=== PATIENT | female | born 2000 | race Hispanic/Latino ===

== ENCOUNTER 2020-08-19 10:28 | Emergency (ER) | payer OTHER ==
[2020-08-19 12:08] LABS: SARS-COV-2 RT PCR NEGATIVE (NEGATIVE)
[2020-08-19 13:05] LABS: Basophils % 1.2 % (0-1.3); Hematocrit 41.2 % (36.0-45.0); Lymphocytes % 39.8 % (15.3-44.8); MPV 7.9 fL (7.6-11.3); RBC Red Blood Cell Count 4.68 M/uL (3.86-4.86)
[2020-08-19 13:23] LABS: BUN Blood Urea Nitrogen 8 mg/dL (7-18); Bicarbonate 30 mmol/L (21-32); Glucose Level 85 mg/dL (74-106); Potassium 4.1 mmol/L (3.5-5.1); Sodium Level 140 mmol/L (136-145)
--- NOTE | 2020-08-19 13:29 | EDPHYS ---
Physician Documentation [facility] Name: Elizabeth Ocampo Age: 20 yrs Sex: Female : 2000 Arrival Date: 08/19/2020 Time: 10:30 Bed 17 Private MD: ED Physician Negro Zee HPI: 08/19 11:55 This 20 yrs old Female presents to ER via Ambulatory with complaints of Runny kb Nose, Body Aches, Rectal Bleeding. 11:55 The patient or guardian reports flu symptoms, myalgias. Severity of symptoms: At their kb worst the symptoms were mild, in the emergency department the symptoms are unchanged. Associated signs and symptoms: Pertinent positives: rhinorrhea, Pertinent negatives: chest pain, diarrhea, ear ache, fever, nausea, sore throat, vomiting. The patient has not experienced similar symptoms in the past. The patient has not recently seen a physician. 11:56 Onset: The symptoms/episode began/occurred yesterday. Modifying factors: The symptoms kb are alleviated by nothing, the symptoms are aggravated by nothing. Pt reports bodyaches, malaise, runny nose, lack of smell. States today she wiped and there was some blood on the toilet paper from rectum. Historical: - Allergies: 10:43 No Known Allergies; ll1 - PMHx: 10:43 None; ll1 - PSHx: 10:43 None; ll1 - Immunization history:: Adult Immunizations up to date. - Social history:: Smoking status: Patient denies any tobacco usage or history of. ROS: 11:52 Cardiovascular: Negative for chest pain, palpitations, and edema, Respiratory: Negative kb for shortness of breath, cough, wheezing, and pleuritic chest pain, MS/Extremity: Negative for injury and deformity, Skin: Negative for injury, rash, and discoloration, Neuro: Negative for headache, weakness, numbness, tingling, and seizure. 11:52 Constitutional: Positive for body aches, fatigue, malaise. 11:52 ENT: Positive for rhinorrhea. 11:52 Abdomen/GI: Positive for rectal bleeding. Exam: 11:52 Constitutional: This is a well developed, well nourished patient who is awake, alert, kb and in no acute distress. Head/Face: Normocephalic, atraumatic. Chest/axilla: Normal chest wall appearance and motion. Nontender with no deformity. No lesions are appreciated. Cardiovascular: Regular rate and rhythm with a normal S1 and S2. No gallops, murmurs, or rubs. Normal PMI, no JVD. No pulse deficits. Respiratory: Lungs have equal breath sounds bilaterally, clear to auscultation and percussion. No rales, rhonchi or wheezes noted. No increased work of breathing, no retractions or nasal flaring. Abdomen/GI: Soft, non-tender, with normal bowel sounds. No distension or tympany. No guarding or rebound. No evidence of tenderness throughout. Skin: Warm, dry with normal turgor. Normal color with no rashes, no lesions, and no evidence of cellulitis. MS/ Extremity: Pulses equal, no cyanosis. Neurovascular intact. Full, normal range of motion. Neuro: Awake and alert, GCS 15, oriented to person, place, time, and situation. Cranial nerves II-XII grossly intact. Motor strength 5/5 in all extremities. Sensory grossly intact. Cerebellar exam normal. Normal gait. 13:28 Abdomen/GI: Rectal exam: rectal tone normal, Stool: guaiac positive, hemorrhoid(s), are kb not appreciated. Vital Signs: 10:43 BP 125 / 61; Pulse 73; Resp 18; Temp 97.3; Pulse Ox 98% ; ll1 10:45 BP 109 / 83; Pulse 68; Resp 16; Pulse Ox 100% on R/A; vg1 12:00 BP 108 / 80; Pulse 63; Resp 14; Pulse Ox 98% on R/A; vg1 13:00 BP 103 / 72; Pulse 65; Resp 14; Pulse Ox 98% on R/A; vg1 MDM: 10:38 Patient medically screened. kb 11:55 Data reviewed: vital signs, nurses notes. Data interpreted: Pulse oximetry: on room air kb is 98 %. Interpretation: normal. Counseling: I had a detailed discussion with the patient and/or guardian regarding: the historical points, exam findings, and any diagnostic results supporting the discharge/admit diagnosis, lab results, the need for outpatient follow up, a family practitioner, to return to the emergency department if symptoms worsen or persist or if there are any questions or concerns that arise at home. 08/19 12:09 Order name: COVID-19/FLU A+B; Complete Time: 12:13 [facility] 08/19 12:35 Order name: IV Start; Complete Time: 12:50 kb 08/19 12:35 Order name: CBC with Diff; Complete Time: 13:24 kb 08/19 12:35 Order name: Basic Metabolic Panel; Complete Time: 13:24 kb Administered Medications: No medications were administered Disposition: 08/20 08:38 Co-signature as Attending Physician, Negro Zee MD I agree with the assessment and devin plan of care. Disposition: 08/19/20 13:28 Discharged to Home. Impression: Gastrointestinal hemorrhage, unspecified, Acute upper respiratory infection, unspecified. - Condition is Stable. - Discharge Instructions: Rectal Bleeding, Upper Respiratory Infection, Adult, [id number]. - Medication Reconciliation Form, Thank You Letter, Antibiotic Education, Prescription Opioid Use form. - Follow up: Emergency Department; When: As needed; Reason: Worsening of condition. Follow up: Private Physician; When: 2 - 3 days; Reason: Recheck today's complaints, Continuance of care, Re-evaluation by your physician. Signatures: Dispatcher [employer] [facility] Dione Blevins, TREASURY ANALYST-C TREASURY ANALYST-Shadib Negro Zee MD MD cha Garcia, Victoria, RN RN vg1 Brandon Castle RN RN ll1 Corrections: (The following items were deleted from the chart) 08/19 11:15 10:44 CORONAVIRUS+MR.LAB.BRZ ordered. [facility] 11:16 10:44 Influenza Screen (A \T\ B)+BA.LAB.BRZ ordered. [facility] 13:54 13:28 08/19/2020 13:28 Discharged to Home. Impression: Gastrointestinal hemorrhage, vg1 unspecified; Acute upper respiratory infection, unspecified. Condition is Stable. Forms are Medication Reconciliation Form, Thank You Letter, Antibiotic Education, Prescription Opioid Use. Follow up: Emergency Department; When: As needed; Reason: Worsening of condition. Follow up: Private Physician; When: 2 - 3 days; Reason: Recheck today's complaints, Continuance of care, Re-evaluation by your physician. kb
--- NOTE | 2020-08-19 13:29 | ER ---
Nurse's Notes [facility] Name: Elizabeth Ocampo Age: 20 yrs Sex: Female : 2000 Arrival Date: 08/19/2020 Time: 10:30 Bed 17 Private MD: Diagnosis: Gastrointestinal hemorrhage, unspecified;Acute upper respiratory infection, unspecified Presentation: 08/19 10:43 Chief complaint: Patient states: Runny nose, body aches, diarrhea with blood in it. ll1 Coronavirus screen: Client denies travel out of the [place] in the last 14 days. diarrhea, fatigue, runny nose, Client presents with at least one sign or symptom that may indicate coronavirus-19. Standard/surgical mask placed on the client. Ebola Screen: Patient denies travel to an Ebola-affected area in the 21 days before illness onset. Initial Sepsis Screen: Does the patient meet any 2 criteria? No. Patient's initial sepsis screen is negative. Does the patient have a suspected source of infection? No. Patient's initial sepsis screen is negative. Risk Assessment: Do you want to hurt yourself or someone else? Patient reports no desire to harm self or others. 10:43 Method Of Arrival: Ambulatory ll1 10:43 Acuity: BRITTANY 3 ll1 11:54 Onset of symptoms is unknown. ll1 Historical: - Allergies: 10:43 No Known Allergies; ll1 - PMHx: 10:43 None; ll1 - PSHx: 10:43 None; ll1 - Immunization history:: Adult Immunizations up to date. - Social history:: Smoking status: Patient denies any tobacco usage or history of. Screenin:53 Abuse screen: Denies threats or abuse. Nutritional screening: No deficits noted. ll1 Tuberculosis screening: No symptoms or risk factors identified. Fall Risk None identified. Total Huff Fall Scale indicates No Risk (0-24 pts). Assessment: 10:45 General: Appears in no apparent distress. Behavior is calm, cooperative, appropriate ll1 for age. Pain: Complains of pain in body Quality of pain is described as aching. Neuro: No deficits noted. Cardiovascular: No deficits noted. Respiratory: Airway is patent Trachea midline Respiratory effort is even, unlabored, Respiratory pattern is regular, symmetrical. GI: Abdomen is flat, Bowel sounds present X 4 quads. Abd is soft and non tender X 4 quads. Reports diarrhea, rectal bleeding. EENT: Nares are clear Reports runny nose. Musculoskeletal: Circulation, motion, and sensation intact. Capillary refill < 3 seconds, Range of motion: intact in all extremities, Reports pain in body aches. 12:06 General: Appears in no apparent distress. Behavior is calm, cooperative. vg1 12:06 Pain: Denies pain. Neuro: Level of Consciousness is awake, alert, obeys commands, vg1 Oriented to person, place, time. Cardiovascular: Patient's skin is warm and dry. Respiratory: Airway is patent Respiratory effort is even, unlabored, Respiratory pattern is regular, symmetrical. GI: Reports diarrhea, rectal bleeding. : No signs and/or symptoms were reported regarding the genitourinary system. EENT: Reports runny nose. . Derm: Skin is intact, is healthy with good turgor. Musculoskeletal: Circulation, motion, and sensation intact. 13:52 Reassessment: Patient appears in no apparent distress at this time. No changes from vg1 previously documented assessment. Patient denies pain at this time. Vital Signs: 10:43 BP 125 / 61; Pulse 73; Resp 18; Temp 97.3; Pulse Ox 98% ; ll1 10:45 BP 109 / 83; Pulse 68; Resp 16; Pulse Ox 100% on R/A; vg1 12:00 BP 108 / 80; Pulse 63; Resp 14; Pulse Ox 98% on R/A; vg1 13:00 BP 103 / 72; Pulse 65; Resp 14; Pulse Ox 98% on R/A; vg1 ED Course: 10:30 Patient arrived in ED. rg4 10:31 Dione Blevins FNP-C is PHCP. kb 10:31 Negro Zee MD is Attending Physician. kb 10:38 Brandon Castle, RN is Primary Nurse. ll1 10:43 Arm band placed on Patient placed in an exam room, on a stretcher. ll1 10:45 Triage completed. ll1 11:53 Patient has correct armband on for positive identification. Bed in low position. Call ll1 light in reach. Side rails up X 1. Cardiac monitoring not applicable on this patient. 12:02 Primary Nurse role handed off by Brandon Castle, RN vg1 12:02 Brunilda Ayoub, RN is Primary Nurse. vg1 12:48 Initial lab(s) drawn, by sc, sent to lab. Inserted saline lock: 20 gauge in left em antecubital area, using aseptic technique. Blood collected. 13:50 No provider procedures requiring assistance completed. IV discontinued, intact, vg1 bleeding controlled, No redness/swelling at site. Pressure dressing applied. Administered Medications: No medications were administered Outcome: 13:28 Discharge ordered by . denzel 13:50 Discharged to home ambulatory, with family. vg1 13:50 Condition: stable 13:50 Discharge instructions given to patient, family, Instructed on discharge instructions, follow up and referral plans. Demonstrated understanding of instructions, follow-up care. 13:54 Patient left the ED. vg1 Signatures: Dione Blevins, LIVESTOCK JUDGING COACH-C LIVESTOCK JUDGING COACH-Carlton Austin RN RN Jackelyn Correa4 Brunilda Ayoub RN RN vg1 Brandon Castle RN RN ll1 Corrections: (The following items were deleted from the chart) 04 01:40 0103 13:50 Discharge instructions given to patient, family, Instructed on discharge vg1 instructions, follow up and referral plans. medication usage, Demonstrated understanding of instructions, follow-up care, medications, vg1
[2020-08-19 13:58] VITALS: TEMP 97.3
[2020-08-19 14:08] VITALS: O2SAT 98
[2020-08-19 14:09] VITALS: BP 103/72
== END 2020-08-19 13:54 | disposition home or self-care (01) ==
LOC: ER 10:28
DX: J06.9 Acute upper respiratory infection, unspecified (principal); K92.2 Gastrointestinal hemorrhage, unspecified; Z20.828 Contact with and (suspected) exposure to other viral communicable diseases
CPT/HCPCS: 85025; 80048; 36415; 0240U; 99283

== ENCOUNTER 2020-11-09 11:13 | Emergency (ER) | payer OTHER, SELFPAY ==
--- OUTSIDE RECORDS SUMMARY | 2020-11-09 11:17 | XMS REPORT | Continuity of Care Document ---
:2000 Author Organization [facility] t Address [address] [place] [address] Care Team Providers Name Role Phone Ulises ACUÑA Attending Clinician Sheree Lorenzo Attending Clinician Sheree Lorenzo Admitting Clinician Problems Condition Condition Condition Status Onset Resolution Last Treating Co mments Source Name Details Category Date Date Treatment Clinician Date F/U GROWTH Diagnosis Active 2018-11-26 Memoria 08-27 12:39:00 l F/U 00:00: Rochelle GROWTH 00 Active 08/27/2018 [facility] [place] ANATOMY Diagnosis Active 2018-11-12 Me moria 1-03 15:44:00 l ANATOMY 00:00: Rochelle 00 Active 08/19/2018 [facility] NORMAL Diagnosis Active 2018-12-30 Mem oria DELIVERY 04-05 05:28:00 l NORMAL 00:00: Zackery DELIVERY 00 Active 04/05/2018 [facility] [place] CONTRACTIO Diagnosis Active 2016-082017-06-24 Memoria NS 08-23 06:23:00 l 00:00: Roc[place]le CONTRACTIO 00 NS Active 7 [facility] [place] FELL/SPOTT Diagnosis Active 2017-04-17 Memoria ING 04-17 12:20:00 l 00:00: [place]le FELL/SPOTT 00 ING Active 04/17/2017 [facility] [place] SCREEN FOR Diagnosis Active 2017-02-27 Memoria ANOMALIES 6-08 10:21:00 l SCREEN 00:00: Zackery FOR 00 ANOMALIES Active 01/22/2017 [facility] Diagnosis Active 2017-07-02 Memoria 2-17 10:25:00 l 00:00: [place]le 00 [facility]03[facility] En[facility] Problem 2019-01-03 Me moria for 21:16:15 l full-term Zackery uncomplica Encounter nicolasa for delivery full-term uncomplica nicolasa delivery 01/03/2019 [facility] ENCOUNTER Diagnosis Active 2018-12-30 Memoria FOR 05:28:00 l FULL-TERM [place]helle UNCOMPLICA ENCOUNTER NICOLASA DE FOR FULL-TERM UNCOMPLICA NICOLASA DE Active [facility] Patient Problem Resolve 2019-01-03 2019-01-03 Memoria currently d 8-16 21:16:15 21:16:15 l Patient 00:00: Amarilis nn (finding) currently 00 (finding) Resolved 04/01/2018 Problem 01/03/2019 [facility] Allergies, Adverse Reactions, Alerts Allergy Allergy Status Severity Reaction(s) Onset Inactive Treating Comm ents Source Name Type Date Date Clinician No Known No Known Active Memori a Medicati Medicati l on on Zackery Allergie Allergie s s Social History Social Habit Start Date Stop Date Quantity Comments Source Social History 2017-06-29 2017-06-29 Truman Rafaela emil 15:10:19 15:10:19 Medications Ordered Filled Start Stop Current Ordering Indication Dosage Frequency Signature Comments Components Source Medication Medication Date Date Medication? Clinician (SIG) Name Name Ketorolac Yes 4 days Memor ia 5-16 l 17:00: MEDICATION Rochelle WASTE Product Size: 30 mg Product Wasted: ___ mg Naloxone No Notes: Memoria 5-16 Same as l 15:00: Narcan Zackery Ketorolac No 4 days Memor ia 5-16 l 14:47: MEDICATION Zackery 00 WASTE Product Size: 30 mg Product Wasted: ___ mg Ondansetron No Notes: Eric eyad -16 (Same as: l 14:47: Zofran) Rochelle 00 MEDICATION WASTE Product Size: 4 mg Product Wasted: ___ mg Hydromorpho No Notes: Eric eyad ne 5-16 Same as: l 14:47: Dilaudid Rochelle 00 Diphenhydra No 12.5 mg, Me moria mine 5-16 0.5 tab, l 14:47: Route: PO, Zackery 00 Drug form: TAB, Q6H, Dosing Weight 96.364, kg, PRN Itching, Start date: 12/30/18 9:47:00 CDT, Duration: 30 day, Stop date: 01/29/19 9:46:00 CDT Ibuprofen No Notes: Memori a 5-16 (Same as: l 14:47: Motrin) Zackery 00 "Do Not Crush" Take with food. Acetaminoph Yes Notes: Max Memoria en 5-16 acetaminop l 14:46: hen 4000 Rochelle 00 mg/day (4 gm/day). (Same as: Tylenol Extra Strength) morphine No Route: IV, Mem oria Sulfate 5-16 Drug form: l (ANES) 14:00: INJ, ONCE, Amarilis nn Stop date: 12/30/18 9:00:00 CDT Ibuprofen No Notes: Memori a 5-16 (Same as: l 14:00: Motrin) Zackery "Do Not Crush" Take with food. Saline No Notes: Memoria Flush 0.9% 5-16 Same as: l 14:00: BD Zackery Posiflush Sterile No 1 tab, Memoria Multivitami 5-16 Route: PO, l ns oral 14:00: Drug Form: Herm lupe tablet 00 TAB, Dosing Weight 96.364, kg, Daily, Start date: 12/30/18 9:00:00 CDT, Duration: 30 day, Stop date: 01/28/19 9:00:00 CDT ferrous No Notes: Memoria sulfate 5-16 Give with l 14:00: food. iron Rochelle 00 elemental [id number] as ferrous sulfate Dose=___mg elemental iron M-M-R II No Notes: Memoria 5-16 (Same as: l 14:00: M-M-R II) Rochelle 00 (measles-m umps-rub la virus vaccine 0.5 ml INJ VL) WASTE: F/P - Red; E -Red GIVE PRIOR TO DISCHARGE phenylephri No Route: IV, Memoria ne (ANES) 5-16 Drug form: l 13:57: INJ, ONCE, Zackery Stop date: 12/30/18 8:57:00 CDT Acetaminoph No Notes: Eric eyad en 325 MG / 5-16 (Same as: l Hydrocodone 13:50: Acton Amarilis nn Bitartrate 00 325/5) Do 5 MG Oral not exceed Tablet 4gm/day of acetaminop hen. Saline No Notes: Memoria Flush 0.9% 5-16 Same as: l 13:50: BD Rochelle 00 Posiflush Sterile Acetaminoph No Notes: Do M emoria en 325 MG / 5-16 not exceed l Hydrocodone 13:50: 4gm/day of Rochelle Bitartrate 00 acetaminop 10 MG Oral hen. Tablet (Same as: Acton 325/10) lanolin No 1 appl, Memoria topical 5-16 Route: l cream 13:50: TOP, PRN, Drug form: CRM, PRN Other -See Comment, Start date: 12/30/18 8:50:00 CDT, Duration: 30 day, Stop date: 01/29/19 8:49:00 CDT Bisacodyl No Notes: Memori a 5-16 (Same As: l 13:50: Dulcolax, Rochelle 00 Correctol) (Do Not Crush) "Do Not Crush" Oxytocin No 30 unit, Memor ia 5-16 500 mL, l 13:50: Rate: 42 Rochelle 00 ml/hr, Infuse over: 11.9 hr, Dosing Weight 96.364, kg, Route: IV, Total Volume: 500 mL, Start date: 12/30/18 8:50:00 CDT, Duration: 2 day, Stop date: 01/01/19 8:49:00 CDT, Replace Every: 11.9 hr Lactated No 1,000 mL, Eric eyad Ringers IV 5-16 Rate: 100 l 1,000 mL 13:50: ml/hr, Infuse over: 10 hr, Route: IV, Dosing Weight 96.364 kg, Total Volume: 1,000, Start date: 12/30/18 8:50:00 CDT, Duration: 30 day, Stop date: 01/29/19 8:49:00 CDT, 2.05, m2 zolpidem No Notes: Memoria 5-16 (Same As: l 13:50: Ambien) Simethicone No Notes: Eric eyad 5-16 (Same as: l 13:50: Mylicon) Acetaminoph No Notes: Do M emoria en 5-16 not exceed l 13:50: 4 gm/day. (Same as: Tylenol) Ondansetron No Notes: Eric eyad 5-16 (Same as: l 13:50: Zofran) MEDICATION WASTE Product Size: 4 mg Product Wasted: ___ mg Docusate No Notes: Memoria 5-16 (Same as: l 13:50: Colace) (Do Not Crush) ondansetron No Route: IV, Memoria (ANES) 5-16 Drug form: l 13:48: INJ, ONCE, Stop date: 12/30/18 8:48:00 CDT oxytocin No Route: IV, Mem oria (ANES) 5-16 Drug form: l 13:48: CARLOSNSamanthaRochelle 00 ONCE, Stop date: 12/30/18 8:48:00 CDT ceFAZolin No Route: IV, Me moria (ANES) 5-16 Drug form: l 13:32: INJ, ONCE, Stop date: 12/30/18 8:32:00 CDT oxytocin No Route: IV, Mem oria (ANES) 30 5-16 Drug form: l unit 13:17: Samantha ELLIOTT Start date: 12/30/18 8:17:00 CDT, Stop date: 12/30/18 9:17:00 CDT bupivacaine No Route: Eric eyad (ANES) 5-16 INTRATHECA l 13:17: L, Drug Form: INJ, ONCE, Stop date: 12/30/18 8:17:00 CDT Lactated No Route: IV, Mem oria Ringers 5-16 Total l Injection 12:37: Volume: Amarilis nn IV (ANES) 00 1,000, 1000 mL Start date: 12/30/18 7:37:00 CDT, Stop date: 12/30/18 8:37:00 CDT Misoprostol No Notes: Eric eyad 5-16 (Same l 12:00: as:Cytotec Rochelle 00 ) Take with food Carboprost No Notes: Memor ia 5-16 (Same As: l 12:00: Hemabate) Zackery 00 Methylergon No Notes: Eric eyad ovine 5-16 (Same l 12:00: as:Metherg Zackery 00 ine) ceFAZolin + Yes Notes: Eric eyad Sodium 5-16 (Same As: l Chloride 11:23: Ancef, Rochelle 0.9% IV 100 00 Kefzol) mL MEDICATION WASTE Product Size: 1000 mg Product Wasted: ___ mg Cefazolin No /= 100 Memor ia 5-16 kg), Start l 11:08: date: Zackery 00 12/30/18 6:08:00 CDT, Stop date: 12/30/18 6:08:00 CDT, ABX Indication : Surgical Prophylaxi s Morphine No 2 mg, 1 Memori a 5-16 mL, Route: l 11:08: IVP, Drug form: SOLN, Q2H, Dosing Weight 96.364, kg, PRN Pain Score 7-10, Start date: 12/30/18 6:08:00 CDT, Duration: 30 day, Stop date: 01/29/19 6:07:00 CDT Famotidine No Notes: Memor ia 5-16 (Same as: l 11:08: Pepcid) Can be dilute in 5-10cc NS IVP: Slow IV push over at least 2 minutes. Tranexamic No Notes: Memor ia Acid 5-16 (Same As: l 11:08: Cyklokapro Rochelle 00 n) Metoclopram No Notes: Eric eyad cassius 5-16 (Same as: l 11:08: Reglan) Ondansetron No Notes: Eric eyad 5-16 (Same as: l 11:08: Zofran) MEDICATION WASTE Product Size: 4 mg Product Wasted: ___ mg Oxytocin No 30 unit, Memor ia 5-16 500 mL, l 11:08: Rate: 42 Rochelle 00 ml/hr, Infuse over: 11.9 hr, Dosing Weight 96.364, kg, Route: IV, Total Volume: 500 mL, Start date: 12/30/18 6:08:00 CDT, Duration: 1 doses or times, Stop date: 12/30/18 18:01:00 CDT, Replace Every: 11.9 hr Terbutaline No Notes: Eric eyad 5-16 DO NOT l 11:08: USE IN FLAKE OR SHRED ROLL OPERATOR AREA (Same As: Brethine) Citric Acid No Notes: Eric eyad / sodium 5-16 (Same As: l citrate 11:08: Bicitra) Danyel n 00 Calcium No 1,000 mL, Memor ia Chloride 5-16 Rate: 125 l 0.0014 11:08: ml/hr, Zackery MEQ/ML / 00 Infuse Potassium over: 8 Chloride hr, Route: 0.004 IV, Dosing MEQ/ML / Weight Sodium 96.364 kg, Chloride Total 0.103 Volume: MEQ/ML / 1,000, Sodium Start Lactate date: 0.028 12/30/18 MEQ/ML 6:08:00 Injectable CDT, Solution Duration: 30 day, Stop date: 01/29/19 6:07:00 CDT, 2.05, m2 Docusate 2016-08 Yes 100 mg = 1 Mem oria Sodium 100 1-17 cap, PO, l MG Oral 15:58: BID, PRN Danyel n Capsule 00 Constipati on, # 60 cap, 0 Refill(s) ferrous 2016-08 Yes 325 mg = 1 Eric eyad sulfate 325 1-17 tab, PO, l MG Oral 15:58: TID, # 90 Amarilis nn Tablet 00 tab, 0 Refill(s) Acetaminoph 2016-08 Yes 1 - 2 tab, Memoria en 300 MG / -17 PO, Q4H, l Codeine 15:58: PRN Pain, Amarilis nn Phosphate 00 X 4 day, # 30 MG Oral 36 tab, 0 Tablet Refill(s) [Tylenol with Codeine #3] ibuprofen 2016-08 Yes 800 mg = 1 Me moria 800 mg oral 1-17 tab, PO, l tablet 15:58: Q8H, PRN Rochelle 00 Pain, Take with food, # 30 tab, 0 Refill(s) K-Dur 20 2016-08 No Notes: Memoria -17 (Same as: l 15:32: K-Dur 20) Zackery 00 "Do Not Crush" With food and full glass of water influenza 2016-08 No Notes: Memori a virus 09-02 (Same as: l vaccine, 15:00: Fluzone Danyel n inactivated 00 Quadrivale nt, Fluarix Quadrivale nt) For 3 years of age and older (0.5 mL IM) Shake well before use Ketorolac 2016-08 No 4 days Memor ia 17 l 00:50: MEDICATION Rochelle 00 WASTE Product Size: 30 mg Product Wasted: ___ mg ferrous 2016-08 No Notes: Memoria sulfate 09-01 Give with l 15:00: food. iron Zackery 00 elemental 38ui=617nm as ferrous sulfate Dose=___mg elemental iron 2016-08 No 1 tab, Memoria Multivitami 16 Route: PO, l ns oral 15:00: Drug Form: Herm lupe tablet 00 TAB, Dosing Weight 101.818, kg, Daily, Start date: 07/02/17 9:00:00 DIRT CONTRACTOR, Duration: 30 day, Stop date: 08/01/17 8:59:00 DIRT CONTRACTOR Lasix 2016-08 No Notes: Memoria -16 (Same as: l 14:16: Lasix) Zackery 00 MEDICATION WASTE Product Size: 40 mg Product Wasted: ___ mg Lasix 2016-08 No Notes: Memoria -16 (Same as: l 08:28: Lasix) Rochelle 00 MEDICATION WASTE Product Size: 40 mg Product Wasted: ___ mg Ibuprofen 2016-08 No Notes: Memori a 1-16 (Same as: l 00:00: Motrin) Rochelle 00 "Do Not Crush" Take with food. M-M-R II 2016-08 No Notes: Memoria 1-15 (Same as: l 22:00: M-M-R II) Zackery 00 (measles-m umps-rubel la virus vaccine 0.5 ml INJ VL) WASTE: F/P - Red; E -Red GIVE PRIOR TO DISCHARGE Acetaminoph 2016-08 No Notes: Eric eyad en 325 MG / 15 (Same as: l Hydrocodone 21:04: Acton Amarilis nn Bitartrate 00 325/5) Do 5 MG Oral not exceed Tablet 4gm/day of acetaminop hen. Methylergon 2016-08 No Notes: Eric eyad ovine -15 (Same l 21:04: as:Metherg Zackery ine) Benzocaine 2016-08 No Notes: Memor ia 200 MG/ML 15 (Same As: l Topical 21:04: Dermoplast Herm lupe Cullen ) WASTE: [Dermoplast Aerosol - ] Return to Pharmacy FOR EXTERNAL USE ONLY zolpidem 2016-08 No Notes: Memoria 1-15 (Same As: l 21:04: Ambien) Zackery 00 Bisacodyl 2016-08 No Notes: Memori a -15 (Same As: l 21:04: Dulcolax, Rochelle Correctol) (Do Not Crush) "Do Not Crush" lanolin 2016-08 No 1 appl, Memoria topical -15 Route: l 21:04: TOP, PRN, Rochelle Drug form: CRM, PRN Other -See Comment, Start date: 07/01/17 15:04:00 DIRT CONTRACTOR, Duration: 30 day, Stop date: 07/31/17 15:03:00 DIRT CONTRACTOR Ondansetron 2016-08 No Notes: Eric eyad -15 (Same as: l 21:04: Zofran) Rochelle 00 MEDICATION WASTE Product Size: 4 mg Product Wasted: ___ mg Docusate 2016-08 No Notes: Memoria 1-15 (Same as: l 21:04: Colace) Zackery (Do Not Crush) Lactated 2016-08 No 1,000 mL, Eric eyad Ringers IV -15 Rate: 100 l 1,000 mL 21:04: ml/hr, Zackery 00 Infuse over: 10 hr, Route: IV, Dosing Weight 101.818 kg, Total Volume: 1,000, Start date: 07/01/17 15:04:00 DIRT CONTRACTOR, Duration: 30 day, Stop date: 07/31/17 15:03:00 DIRT CONTRACTOR, 2.09, m2 Oxytocin 2016-08 No 30 unit, Memor ia 1-15 500 mL, l 21:04: Rate: 42 Rochelle 00 ml/hr, Infuse over: 11.9 hr, Dosing Weight 101.818, kg, Route: IV, Total Volume: 500 mL, Start date: 07/01/17 15:04:00 DIRT CONTRACTOR, Duration: 2 day, Stop date: 07/03/17 15:03:00 DIRT CONTRACTOR, Replace Every: 11.9 hr Ondansetron 2016-08 No Notes: Eric eyad -15 (Same as: l 00:05: Zofran) Zackery 00 MEDICATION WASTE Product Size: 4 mg Product Wasted: ___ mg Naloxone 2016-08 No Notes: Memoria -15 Same as l 00:05: Narcan Diphenhydra 2016-08 No Notes: Eric eyad mine -15 (Same as: l 00:05: Benadryl) Benadryl 2016-08 No Notes: Memoria -15 (Same as: l 00:05: Benadryl) Rochelle ketOROLAC 2016-08 No 4 days Memor ia 30 mg/mL 08-31 l injectable 00:05: MEDICATION H ermann solution 00 WASTE Product Size: 30 mg Product Wasted: ___ mg Zofran 2016-08 No Notes: Memoria 1-15 (Same as: l 00:05: Zofran) Rochelle 00 MEDICATION WASTE Product Size: 4 mg Product Wasted: ___ mg Ofirmev 2016-08 No Notes: Memoria 1-15 Infuse l 00:05: over 15 Zackery 00 minutes Do not exceed 4gm/day of acetaminop hen MEDICATION WASTE Product Size: 1000 mg Product Wasted: ___ mg Acetaminoph 2016-08 No Notes: Max Memoria en 1-15 acetaminop l 00:05: hen 4000 Zackery 00 mg/day (4 gm/day). (Same as: Tylenol Extra Strength) Morphine 2016-08 No Notes: Memoria 1-15 Preservati l 00:05: ve free. Zackery 00 (Same as: Morphine Sulfate-PF ) Hydromorpho 2016-08 No Notes: Eric eyad ne 1-15 Same as: l 00:05: Dilaudid Rochelle 00 Promethazin 2016-08 No Notes: Eric eyad e 1-15 (Same as: l 00:05: Phenergan) Rochelle 00 influenza 2016-08 Yes Notes: Memori a virus 1-14 (Same as: l vaccine, 15:00: Fluzone Danyel n inactivated 00 Quadrivale nt, Fluarix Quadrivale nt) For 3 years of age and older (0.5 mL IM) Shake well before use Oxytocin 2016-08 No 30 unit, Memor ia 1-14 500 mL, l 14:50: Rate: Rochelle 00 Titrate, Dosing Weight 101.818, kg, Route: IV, Total Volume: 500 mL, Start date: 06/30/17 8:50:00 DIRT CONTRACTOR, Duration: 2 day, Stop date: 07/02/17 8:49:00 DIRT CONTRACTOR, Replace Every: 24 hr Remove - 2016-08 No Notes: Memoria dinoproston 1-14 Vaginal l e 04:00: insert: to Zackery (Cervidil) 00 be removed insert 1 hour prior to oxytocin administra tion or 12 hours after insertion. Carboprost 2016-08 No Notes: Memor ia 1-13 (Same As: l 16:00: Hemabate) Zackery 00 Methylergon 2016-08 No Notes: Eric eyad ovine 1-13 (Same l 16:00: as:Metherg Zackery 00 ine) Citric Acid 2016-08 No Notes: Eric eyad / sodium 1-13 (Same As: l citrate 16:00: Bicitra) Danyel n 00 Famotidine 2016-08 No Notes: Memor ia 1-13 (Same as: l 16:00: Pepcid) Rochelle 00 Can be dilute in 5-10cc NS IVP: Slow IV push over at least 2 minutes. Misoprostol 2016-08 No Notes: Eric eyad -13 (Same l 16:00: as:Cytotec Rochelle ) Take with food Cervidil 2016-08 No Notes: Memoria - (Same as: l 15:38: Cervidil) Rochelle Terbutaline 2016-08 No Notes: Eric eyad 08-29 DO NOT l 15:33: USE IN Zackery 00 FLAKE OR SHRED ROLL OPERATOR AREA (Same As: Brethine) Lidocaine 2016-08 No Notes: Memori a Hydrochlori 08-29 Preservati l de 10 MG/ML 15:33: ve free. He rmann Injectable (Same as: Solution Xylocaine MPF) Ondansetron 2016-08 No Notes: Eric eyad 08-29 (Same as: l 15:33: Zofran) Zackery MEDICATION WASTE Product Size: 4 mg Product Wasted: ___ mg Ibuprofen 2016-08 No Notes: Memori a - (Same as: l 15:33: Motrin) Zackery "Do Not Crush" Take with food. Acetaminoph 2016-08 No Notes: Eric eyad en 325 MG / 08-29 (Same as: l Hydrocodone 15:33: Acton Amarilis nn Bitartrate 00 325/5) Do 5 MG Oral not exceed Tablet 4gm/day of acetaminop hen. Butorphanol 2016-08 No Notes: Eric eyad -13 (Same As: l 15:33: Stadol) Zackery 00 Oxytocin 2016-08 No 30 unit, Memor ia -13 500 mL, l 15:33: Rate: 42 Rochelle 00 ml/hr, Infuse over: 11.9 hr, Dosing Weight 101.818, kg, Route: IV, Total Volume: 500 mL, Start date: 06/29/17 9:33:00 DIRT CONTRACTOR, Duration: 2 day, Stop date: 07/01/17 9:32:00 DIRT CONTRACTOR, Replace Every: 11.9 hr Lactated 2016-08 No 1,000 mL, Eric eyad Ringers IV 08-29 Rate: 125 l 1,000 mL 15:33: ml/hr, Rochelle 00 Infuse over: 8 hr, Route: IV, Dosing Weight 101.818 kg, Total Volume: 1,000, Start date: 06/29/17 9:33:00 DIRT CONTRACTOR, Duration: 30 day, Stop date: 07/29/17 9:32:00 DIRT CONTRACTOR, 2.09, m2 Calcium 2016-08 No 1,000 mL, Memor ia Chloride 1-13 1,000 l 0.0014 15:33: ml/hr, Rochelle MEQ/ML / 00 Infuse Potassium Over: 1 Chloride hr, Route: 0.004 IV, 1,000, MEQ/ML / Drug form: Sodium INJ, ONCE, Chloride Dosing 0.103 Weight MEQ/ML / 101.818 Sodium kg, Start Lactate date: 0.028 06/29/17 MEQ/ML 9:33:00 Injectable DIRT CONTRACTOR, Stop Solution date: 06/29/17 9:33:00 DIRT CONTRACTOR, Bolus for regional anesthesia per unit protocol influenza 2016-08 No Notes: Memori a virus 1-08 (Same as: l vaccine, 15:00: Fluzone Danyel n inactivated 00 Quadrivale nt, Fluarix Quadrivale nt) For 3 years of age and older (0.5 mL IM) Shake well before use Vital Signs Vital Name Observation Time Observation Value Comments Source Diastolic (mm Hg) 2019-01-01 17:24:00 Mem orial [place] Systolic (mm Hg) 2019-01-01 17:24:00 Eric rial Zackery Respitory Rate 2019-01-01 17:24:00 Memori al [place] Temperature Oral (F) 2019-01-01 17:24:00 98.4 F [facility] [place] Heart Rate 2019-01-01 17:24:00 [facility] [place] Respitory Rate 2019-01-01 12:36:00 Memori al [place] Systolic (mm Hg) 2019-01-01 12:36:00 Eric rial [place] Diastolic (mm Hg) 2019-01-01 12:36:00 Mem orial [place] Heart Rate 2019-01-01 12:36:00 [facility] [place] Temperature Oral (F) 2019-01-01 12:36:00 97.9 F [facility] [place] Temperature Oral (F) 2019-01-01 05:20:00 97.9 F [facility] [place] Respitory Rate 2019-01-01 05:20:00 Memori al [place] Heart Rate 2019-01-01 05:20:00 [facility] [place] Systolic (mm Hg) 2019-01-01 05:20:00 Eric rial Zackery Diastolic (mm Hg) 2019-01-01 05:20:00 Mem orial [place] Height 2018-12-30 10:42:00 149.86 cm [facility] [place] BMI Calculated 2018-12-30 10:42:00 Memori al [place] Weight 2018-12-30 10:42:00 [facility] [place] Temperature Oral (F) 2017-07-03 15:00:00 98.0 F [facility] [place] Systolic (mm Hg) 2017-07-03 15:00:00 Eric rial [place] Diastolic (mm Hg) 2017-07-03 15:00:00 Mem orial Zackery Systolic (mm Hg) 2017-07-03 10:00:00 Eric rial [place] Diastolic (mm Hg) 2017-07-03 10:00:00 Mem orial [place] Temperature Oral (F) 2017-07-03 10:00:00 98.0 F [facility] [place] Systolic (mm Hg) 2017-07-03 06:00:00 Eric rial [place] Diastolic (mm Hg) 2017-07-03 06:00:00 Mem orial [place] Temperature Oral (F) 2017-07-03 06:00:00 98.3 F [facility] [place] Respitory Rate 2017-07-01 01:15:00 Memori al [place] Respitory Rate 2017-06-30 10:43:00 Memori al [place] Respitory Rate 2017-06-30 05:50:00 Memori al [place] Heart Rate 2017-06-29 15:06:00 [facility] [place] BMI Calculated 2017-06-29 15:00:00 Memori al [place] Weight 2017-06-29 15:00:00 [facility] [place] Height 2017-06-29 15:00:00 147.32 cm [facility] [place] Systolic (mm Hg) 2017-06-24 08:30:00 Eric rial [place] Diastolic (mm Hg) 2017-06-24 08:30:00 Mem orial [place] Systolic (mm Hg) 2017-06-24 08:05:00 Eric rial Zackery Diastolic (mm Hg) 2017-06-24 08:05:00 Mem orial [place] Temperature Oral (F) 2017-06-24 07:41:00 98.6 F [facility] [place] Systolic (mm Hg) 2017-06-24 07:41:00 Eric rial Zackery Diastolic (mm Hg) 2017-06-24 07:41:00 Mem orial [place] Respitory Rate 2017-06-24 07:41:00 Memori al [place] Heart Rate 2017-06-24 07:41:00 [facility] [place] Height 2017-06-24 07:37:00 149.86 cm [facility] [place] Temperature Oral (F) 2017-04-17 17:45:00 98.2 F [facility] [place] Systolic (mm Hg) 2017-04-17 17:45:00 Eric rial Zackery Diastolic (mm Hg) 2017-04-17 17:45:00 Mem orial [place] Systolic (mm Hg) 2017-04-17 17:30:00 Eric rial Zackery Diastolic (mm Hg) 2017-04-17 17:30:00 Mem orial [place] Systolic (mm Hg) 2017-04-17 16:45:00 Eric rial Zackery Diastolic (mm Hg) 2017-04-17 16:45:00 Mem orial [place]ack[place] Respitory Rate 2017-04-17 16:09:00 Memori al [place] Heart Rate 2017-04-17 16:09:00 [facility] [place] Temperature Oral (F) 2017-04-17 16:09:00 99.0 F [facility] [place] Weight 2017-04-17 16:08:00 [facility] [place] BMI Calculated 2017-04-17 16:08:00 Memori al [place]ack[place] Height 2017-04-17 16:08:00 149.86 cm [facility] [place] Procedures This patient has no known procedures. Encounters Start End Encounter Admission Attending Care Care Encounter Source Date/Time Date/Time Type Type Clinicians Facility Department ID 2018-12-30 Inpatient [facility]BL [facility]BL [id number] MHB L 05:26:00 2019-04-24 2019-04-24 Emergency Ulises OKERICKA [id number] 08:59:27 10:36:00 [facility] [place] [id number] [place] [id number] [place] [id number] 2018-12-30 2019-01-[address] [id number] 05:26:00 16:02:00 Man Sheree 16 2018-11-26 2018-12-25 Outpatient Maura, [facility]PL [facility]PL [id number] 11:35:00 23:59:00 Man Sheree 02 2018-11-26 2018-11-26 Outpatient MHBL MHBL [id number] MHBL 11:35:00 11:35:00 2018-08-27 2018-09-25 Outpatient Maura, MHPL [facility]PL [id number] 12:54:00 23:59:00 Man Sheree 2017-06-29 2017-07-03 Outpatient Maura, MHPL [facility]PL [id number] 08:07:00 13:54:00 Manwilliam De La Garzaee 44 2017-06-24 2017-06-24 Outpatient Maura, MHPL [facility]PL [id number] 01:36:00 02:44:00 Manwilliam Bentley 2017-04-17 2017-04-17 Outpatient Lorenzo, [facility]PL [facility]PL [id number] 11:07:00 15:00:00 Man Sheree 00 2017-02-27 2017-03-28 Outpatient Lorenzo, [facility]PL [facility]PL [id number] 10:13:00 23:59:00 Man Sheree 00 Results Test Description Test Time Test Comments Results Result Comments Source HEMATOLOGY 2018-12-31 27.6 [facility] Amarilis nn 10:13:00 HEMATOLOGY 2018-12-31 9.1 [facility] Amarilis nn 10:13:00 HEMATOLOGY 2018-12-31 10:13:00 Test Item Value Reference Range Interpretation Comme nts MCH (test code = MCH) 24.2 pg 27.0-31.0 [facility] [id number] 10:13:0073.6[facility]ann[facility]MATOLOGY 2018-12-31 10:13:007.5[facility] OqridieVMEPVGVXUP3288-31-44 10:13:64388Celpvded AqzyoolNOYNZRKVPV5531-51-96 10:13:0017.5[facility] MaxxoyxKOFOOALMLR8942-66-74 10:13:0032.8[facility] XwgokilNQTBPDHAVI7606-31-37 10:13:0011.0[facility] ICBKIRUNIW9199-75-52 10:13:003.75[facility] LevlnuiJCRFVRWRKQ9084-45-35 10:13:00 6.3[facility] QwqufsaQWGSCFCACU3069-49-53 10:13:000.3[facility] 2018-12-31 10:13:000.2[facility] DerqujsYWIQRAHCLR5087-67-98 10:13:001.9[facility] TlinxpyCNCXHDDTMM8450-32-00 10:13:008.4[facility] IdhjvadSERCRNOQUJ9085-22-82 10:13:000.7[facility] YeyoljyKHQXFMVHIW3116-95-84 10:13:002+ *ABN*(12/31/18 5:13 AM)[facility] MluzlxjOOXSFNXOZN1967-74-43 10:13:0076.1[facility]ann[facility] 2018-12-31 10:13:0017.1[facility] QCJYNDQ9944-66-98 11:12:00See Note 1(12/30/18 6:12 AM)[facility] KVNAKJZ1829-59-73 11:12:00 Negative (12/30/18 6:12 AM)[facility] LPPNGH9455-74-12 11:12:00Negative *NA*(12/30/18 6:12 AM)[facility] SEAERV3371-16-50 11:12:00Negative *NA*(12/30/18 6:12 AM)[facility] CKKWRT7131-49-30 11:12:00Negative *NA*(12/30/18 6:12 AM)[facility] NDMFDZ3923-10-00 11:12:00Negative *NA*(12/30/18 6:12 AM)[facility] QAKJAZ6285-06-89 11:12:00See Note *NA*(12/30/18 6:12 AM)[facility] LZIGUF1847-78-32 11:12:00Negative *NA*(12/30/18 6:12 AM)[facility] XVWDEV5500-08-35 11:12:00Negative *NA*(12/30/18 6:12 AM)[facility] DWGFZT0134-16-28 11:12:00Negative *NA*(12/30/18 6:12 AM)[facility] KtrvijbDNLLYAHFBG0086-00-01 11:12:0017.6[facility] AvvpabbXYHIYLIUQK6263-72-16 11:12:00 Test Item Value Reference Range Interpretation Comments MCH (test code = MCH) 24.3 pg 27.0-31.0 [facility] MatiareEUUCKIRZLT7712-08-58 11:12:0032.8[facility]ann[facility]MATOLOGY 2018-12-30 11:12:0032.7[facility] KiughqkFJBGWBDIXO4373-01-48 11:12:0074.1[facility] IasnejxWESYPQRZGV3873-38-52 11:12:68131Dbzceonr XbzanmlLXKQYFEEHW3861-00-08 11:12:007.7[facility] PyfwdyrEOTDUHZKNM7860-16-11 11:12:0010.7[facility] DOBLRGZTIT4586-16-69 11:12:004.41[facility] SkpcknbSSLCBMRPKC8312-35-08 11:12:00 10.5[facility] EvgzcuuXQTRYFQGUK2422-61-07 11:12:002.8[facility]annHEMATOLOGY 2018-12-30 11:12:006.9[facility] NoprylwQWFEADJJWH2701-10-35 11:12:0066.0[facility] HcqisgcUDPYQHQTLE7999-56-04 11:12:0026.7[facility] YsvgbexZTNGLTSHYR0705-86-56 11:12:000.1[facility] SvtzfnfEJCAGGLODJ5155-98-43 11:12:006.4[facility] IPPFWESJUV2835-36-40 11:12:000.4[facility] MugdtnbKQTEQGNUPX9008-86-17 11:12:000.5 [facility] CawtvhpURWLJIGWWW1317-49-01 11:12:001+ *ABN*(12/30/18 6:12 AM)[facility] AyuwhwmTQVFLXMRMM3228-85-03 11:12:000.7[facility] FrewssaYFZAEIHNNW5943-52-16 11:12:00Negative *NA*(12/30/18 6:12 AM)[facility] TfoiwylOKOEORMSKE4048-36-50 11:12:00Non-Reactive *NA*(12/30/18 6:12 AM)[facility] XtnwbahTWSXZNDDED1500-20-27 11:12:00Negative *NA*(12/30/18 6:12 AM)[facility] XsoqcvxSLKEUMZWTOBA9906-82-69 22:42:02156Dlenkvhg VdfsxagBGLHUISKPR4176-63-92 22:42:007.1[facility] WABGIOAJCX2714-70-29 22:42:0014.9[facility] UnolhigJJCODMPRFS9120-49-04 22:42:00 21.6[facility] PzjyqbjXQGBIMTFCB5388-99-00 22:42:002.68[facility]annHEMATOLOGY 2017-07-02 22:42:007.5[facility] IbwzasoMJTDBNCVYT5957-08-18 22:42:48985Ymuuliog YarupgnHXSYBDRDDA6386-67-68 22:42:0016.5[facility] OwhhoiwNMDNZDTQWK5461-99-95 22:42:0032.6[facility] IchilthCMJKIXTIKO8806-89-96 22:42:0080.7[facility] XONRRLNMXB0113-51-18 22:42:00 Test Item Value Reference Range Interpretation Comments MCH (test code = MCH) 26.4 pg 27.0-31.0 [facility] IwikhsiOEIQKSOUVTXP4949-15-05 22:42:0010.2[facility] HermannELECTROLYTES 2017-07-02 22:42:0081[facility] YqdtufvDGRDSZOHQRSW1398-78-50 22:42:85653Vbgbahaa ZhnaqpwPRIHQVJHRRQK4489-88-95 22:42:003.2[facility] XqgwicqXYPIIJARGUAK5046-56-16 22:42:47666Lfzbtxgr UytfakzOYDJQLQWPYVZ4621-64-24 22:42:000.41[facility] CXLOOKBKJLEK9727-70-71 22:42:007[facility] ExmiklpZSEARGAARQXL4000-73-06 22:42:00 8.0[facility] OkuabzgIAABINVQDTXU4190-86-36 22:42:0026[facility]annHEMATOLOGY 2017-07-02 12:31:0020.6[facility] GtqnzriAZHNXIJZGA4150-04-69 12:31:006.8[facility] DmanbepYJTHCJBYSA4428-49-68 04:38:000.9[facility] MqjmktoJWZHTHWWZG7462-98-61 04:38:0078.7[facility] EtdbutvFTZJUUIELD8925-04-78 04:38:0015.9[facility] SUJLVYFORV2199-04-80 04:38:005.2[facility] GriwuadVZHCJMCMPL4304-70-17 04:38:00 13.0[facility] IhhvvmnSDGGXTGWVI2679-37-32 04:38:000.2[facility]annHEMATOLOGY 2017-07-02 04:38:002.6[facility] XorugmeCTIFMQDEVN5431-14-00 04:38:007.5[facility] QiinvtkRTZTQJSCSZ9088-26-66 04:38:0033.2[facility] RajaqxpOHKXIJCUNQ6880-35-93 04:38:00 Test Item Value Reference Range Interpretation Comments MCH (test code = MCH) 26.8 pg 27.0-31.0 [facility] UgiesydRXCERBOENB3940-16-67 04:38:92738Sginahhw [facility]annHEMATOLOGY 2017-07-02 04:38:0016.4[facility] OllrvdwXBKDCHFWZC3045-16-95 04:38:0016.5[facility] FkitbkfHTVJQJSUHL4130-20-41 04:38:0080.7[facility] CclgpxuXYQFZDZDTP7986-04-46 04:38:0022.5[facility] SubigmjLIBAUUZQGP5846-79-28 04:38:007.5[facility] SFVPWTCOXO3363-13-61 04:38:002.79[facility] TZDLKQB3088-27-85 16:09:00Negative (06/29/17 10:09 AM)[facility] AZOSTIA9374-42-43 16:09:00See Note 1(06/29/17 10:09 AM)[facility] KcrxwdwMLINOLYPKG8536-00-32 16:09:000.8[facility] WgmaspnJJPMHLZFLS7353-54-31 16:09:000.1[facility] YAIKGHKUHM5316-90-53 16:09:0023.9[facility] OibavhsCOGTPAOGVM2603-78-08 16:09:00 67.6[facility] RfbcgpjFDSRZDLSQW9778-70-92 16:09:002.4[facility]annHEMATOLOGY 2017-06-29 16:09:006.9[facility] QgfttxxAVRLDIMDNE9157-94-95 16:09:000.7[facility] PvusqheUFHOJTYOUJ5272-06-98 16:09:000.3[facility] HhpqymyEHTSRXSEMY7758-00-19 16:09:007.5[facility] LlcxibdWBBPLHXXZL8060-48-56 16:09:00 Test Item Value Reference Range Interpretation Comments MCH (test code = MCH) 26.9 pg 27.0-31.0 [facility] EkzegvrDYHUPQPWRO3991-10-22 16:09:004.17[facility]annHEMATOLOGY 2017-06-29 16:09:0015.6[facility] TjdcgiaJEBYCXSGZZ3756-61-13 16:09:85714Hwahafqv BtjiazxCMKJDPARTA8394-93-33 16:09:0080.2[facility] UlisvkoSVJAAOBCRW8121-57-32 16:09:0033.5[facility] QonlwgvZGCEQSUPUS3032-41-46 16:09:008.2[facility] DLGECLZPYC9714-92-26 16:09:0010.3[facility] GfujlnfIXJEJVOQSZ2685-23-61 16:09:00 Negative *NA*(06/29/17 10:09 AM)[facility] TkmrjhzKMDHRDUTYS3881-24-68 16:09:00 Negative *NA*(06/29/17 10:09 AM)[facility] KdzxfxhWCXPTSUIJM6714-93-63 16:09:00Non Reactive *NA*(06/29/17 10:09 AM)[facility]
[2020-11-09 12:58] LABS: Absolute Lymphocytes (CBC) 0.9 K/uL (0.7-4.9); Basophils % 0.4 % (0-1.3); Hematocrit 44.5 % (36.0-45.0); Lymphocytes % 8.7 % (15.3-44.8); MPV 8.6 fL (7.6-11.3); RBC Red Blood Cell Count 5.09 M/uL (3.86-4.86)
[2020-11-09] MEDS ORDERED: KETOROLAC 30 MG/ML INJ ONE (13:07)
[2020-11-09] MEDS ORDERED: MORPHINE 4 MG/ML SYR ONE (13:07)
[2020-11-09] MEDS ORDERED: ONDANSETRON 4 MG/2 ML VIAL ONE ×2 (13:07→17:25)
[2020-11-09] MEDS ORDERED: FAMOTIDINE 20 MG/2 ML VIAL IV ONE (13:07)
[2020-11-09] MEDS ORDERED: NA CHLORIDE 0.9% 1,000 ML ONE (13:07)
[2020-11-09 13:32] LABS: ALT/SGPT 308 U/L (12-78); Albumin 4.1 g/dL (3.4-5.0); Alkaline Phosphatase 120 U/L (45-117); BUN Blood Urea Nitrogen 8 mg/dL (7-18); Bicarbonate 26 mmol/L (21-32); Bilirubin Direct 0.8 mg/dL (0-0.2); Bilirubin Total 1.7 mg/dL (0.2-1.0); Glucose Level 105 mg/dL (74-106); Lipase 47 U/L (73-393); Potassium 3.8 mmol/L (3.5-5.1); Protein, Total 8.1 g/dL (6.4-8.2); Sodium Level 140 mmol/L (136-145)
[2020-11-09 13:34] LABS: AST/SGOT 478 U/L (15-37)
--- NOTE | 2020-11-09 14:05 | RAD REPORT ---
EXAM DESCRIPTION: CT - Abdomen Pelvis W Contrast - 11/09/2020 1:55 pm CLINICAL HISTORY: Abdominal pain COMPARISON: none. TECHNIQUE: Computed axial tomography of the abdomen pelvis was obtained. 100 cc Isovue-300 was admin istered intravenously. Oral contrast was not requested which limits evaluation of bowel. All CT scans are performed using dose optimization technique as appropriate and may include automated exposure control or mA/KV adjustment according to patient size. FINDINGS: The liver, spleen, pancreas, adrenal and kidneys appear unremarkable. There is no evidence of diverticulitis. Normal appendix No adnexal mass. Cholecystectomy IMPRESSION: No acute abnormality is displayed.
--- NOTE | 2020-11-09 17:17 | EDPHYS ---
Physician Documentation [facility] Name: Elizabeth Ocampo Age: 20 yrs Sex: Female : 2000 Arrival Date: 11/09/2020 Time: 11:18 Bed 17 Private MD: ED Physician Patrick Mullen HPI: 11/09 18:38 This 20 yrs old Female presents to ER via Ambulatory with complaints of kdr COVID+, Abdominal Pain, Vomiting/Diarrhea, Breathing Difficulty. 18:38 The patient presents to the emergency department with nausea, that is moderate, kdr vomiting, that is intermittent, diarrhea, that is intermittent, abdominal pain, of the abdomen diffusely, described as achy. Possible causes: bad food exposure, flare up of bowel problem. The symptoms are aggravated by movement, food , The symptoms are alleviated by nothing. Associated signs and symptoms: Pertinent positives: abdominal pain, diarrhea, nausea, vomiting. Severity of symptoms: At their worst the symptoms were severe incapacitating in the emergency department the symptoms are unchanged. The patient has not experienced similar symptoms in the past. The patient has been recently seen by a physician: The patient was diagnosed with COVID in early October. The patient has had diarrhea and mild diffuse abdominal pain for four days. Most of her pain is in her lateral flank areas posteriorly. Her vomiting started today and she has not been able to keep anything down today. Historical: - Allergies: 11:34 No Known Allergies; ll1 - Home Meds: 19:13 Vitamin C Oral daily [Active]; sf - PMHx: 11:34 None; ll1 - PSHx: 11:34 Cholecystectomy; ll1 - Immunization history:: Flu vaccine is not up to date. - Social history:: Smoking status: Patient denies any tobacco usage or history of. ROS: 18:38 Constitutional: Negative for fever, chills, and weight loss, Eyes: Negative for injury, kdr pain, redness, and discharge, ENT: Negative for injury, pain, and discharge, Neck: Negative for injury, pain, and swelling, Cardiovascular: Negative for chest pain, palpitations, and edema, Back: Negative for injury and pain, : Negative for injury, bleeding, discharge, and swelling, MS/Extremity: Negative for injury and deformity, Skin: Negative for injury, rash, and discoloration, Neuro: Negative for headache, weakness, numbness, tingling, and seizure activity. Psych: Negative for depression, anxiety, suicide ideation, homicidal ideation, and hallucinations, Allergy/Immunology: Negative for hives, rash, and allergies, Endocrine: Negative for neck swelling, polydipsia, polyuria, polyphagia, and marked weight changes, Hematologic/Lymphatic: Negative for swollen nodes, abnormal bleeding, and unusual bruising. 18:38 Respiratory: Positive for dyspnea on exertion, shortness of breath, Negative for hemoptysis, orthopnea, pleurisy, sputum production, wheezing. 18:38 Abdomen/GI: Positive for nausea and vomiting, diarrhea, Negative for black/tarry stool, rectal pain, rectal bleeding, bowel incontinence, flatulence, Denies abdominal pain at the time of recurrent evaluation. Exam: 18:38 Constitutional: This is a well developed, well nourished patient who is awake, alert, kdr and in moderate to severe distress. Head/Face: Normocephalic, atraumatic. Eyes: Pupils equal round and reactive to light, extra-ocular motions intact. Lids and lashes normal. Conjunctiva and sclera are non-icteric and not injected. Cornea within normal limits. Periorbital areas with no swelling, redness, or edema. Neck: Trachea midline, no thyromegaly or masses palpated, and no cervical lymphadenopathy. Supple, full range of motion without nuchal rigidity, or vertebral point tenderness. No Meningismus. Chest/axilla: Normal chest wall appearance and motion. Nontender with no deformity. No lesions are appreciated. Cardiovascular: Regular rate and rhythm with a normal S1 and S2. No gallops, murmurs, or rubs. Normal PMI, no JVD. No pulse deficits. Respiratory: Lungs have equal breath sounds bilaterally, clear to auscultation and percussion. No rales, rhonchi or wheezes noted. No increased work of breathing, no retractions or nasal flaring. Back: No spinal tenderness. No costovertebral tenderness. Full range of motion. Skin: Warm, dry with normal turgor. Normal color with no rashes, no lesions, and no evidence of cellulitis. MS/ Extremity: Pulses equal, no cyanosis. Neurovascular intact. Full, normal range of motion. Neuro: Awake and alert, GCS 15, oriented to person, place, time, and situation. Cranial nerves II-XII grossly intact. Motor strength 5/5 in all extremities. Sensory grossly intact. Cerebellar exam normal. Normal gait. Psych: Awake, alert, with orientation to person, place and time. Behavior, mood, and affect are within normal limits. 18:38 Abdomen/GI: Inspection: obese Bowel sounds: diminished, in all quadrants, Palpation: soft, nontender, in all quadrants. Vital Signs: 11:31 BP 110 / 53; Pulse 108; Resp 17; Temp 98.3; Pulse Ox 97% on R/A; Weight 81.65 kg; ll1 Height 4 ft. 11 in. (149.86 cm); Pain 9/10; 12:45 BP 105 / 70; Pulse 95; Resp 18; Pulse Ox 95% on R/A; bw 14:45 BP 112 / 64; Pulse 98; Resp 18; Pulse Ox 96% on R/A; bw 16:45 BP 104 / 78; Pulse 96; Resp 18; Pulse Ox 96% on R/A; bw 18:35 BP 110 / 74; Pulse 97; Resp 18; Pulse Ox 96% on R/A; bw 19:04 BP 107 / 69; Pulse 70; Resp 16; Pulse Ox 97% ; sf 21:14 BP 106 / 79 RA Sitting (auto/reg); Pulse 66 MON; Resp 16 S; Temp 98.4(O); Pulse Ox 99% sf on R/A; Pain 0/10; 23:47 BP 113 / 77; Pulse 68; Resp 16; Pulse Ox 98% ; Pain 7/10; sf 11/10 02:41 BP 97 / 71; Pulse 72; Resp 16; Temp 98.7; Pulse Ox 98% ; Pain 0/10; sf 11/09 11:31 Body Mass Index 36.36 (81.65 kg, 149.86 cm) ll1 MDM: 11/09 17:16 Patient medically screened. kdr 18:38 Data reviewed: vital signs, nurses notes, lab test result(s), radiologic studies. kdr Counseling: I had a detailed discussion with the patient and/or guardian regarding: the historical points, exam findings, and any diagnostic results supporting the discharge/admit diagnosis, lab results, radiology results, the need for further work-up and treatment in the hospital. 11/09 12:10 Order name: Basic Metabolic Panel; Complete Time: 14:24 kdr 11/09 12:10 Order name: CBC with Diff; Complete Time: 13:35 kdr 11/09 12:10 Order name: Hepatic Function; Complete Time: 14:24 kdr 11/09 12:10 Order name: Lipase; Complete Time: 14:24 kdr 11/09 15:04 Order name: Hepatitis Panel kdr 11/09 12:10 Order name: CT Abd/Pelvis - IV Contrast Only; Complete Time: 14:24 kdr 11/09 21:41 Order name: SARS-COV-2 RT PCR EDMS 11/09 23:00 Order name: UDS rv 11/09 12:10 Order name: IV Saline Lock; Complete Time: 12:58 kdr 11/09 12:10 Order name: Labs collected and sent; Complete Time: 12:58 kdr 11/09 13:36 Order name: Urine Test (obtain specimen); Complete Time: 13:50 kdr Administered Medications: 12:57 Drug: Zofran (Ondansetron) 4 mg Route: IVP; Site: left antecubital; bw 13:54 Follow up: Response: No adverse reaction bw 12:57 Drug: TORadol - Ketorolac 15 mg Route: IVP; Site: right antecubital; bw 13:54 Follow up: Response: No adverse reaction bw 12:57 Drug: NS 0.9% 1000 ml Route: IV; Rate: 1 bolus; Site: left antecubital; bw 19:16 Follow up: IV Status: Completed infusion; IV Intake: 1000ml sf 12:57 Drug: morphine 4 mg Route: IVP; Site: left antecubital; bw 13:54 Follow up: Response: No adverse reaction bw 12:58 Drug: Pepcid (famotidine) 20 mg Route: IVP; Site: left antecubital; bw 13:54 Follow up: Response: No adverse reaction bw 17:11 Drug: Zofran (Ondansetron) 4 mg Route: IVP; Site: left antecubital; bw 19:15 Follow up: Response: No adverse reaction; Nausea is decreased sf 17:12 Drug: [place] (HYDROcodone-acetaminophen) 10 mg-325 mg 1 tabs Route: PO; bw 19:16 Follow up: Response: No adverse reaction; Pain is decreased sf 23:55 Drug: Zofran (Ondansetron) 4 mg Route: IVP; Site: left antecubital; sf 11/10 01:00 Follow up: Response: No adverse reaction; Nausea is decreased sf 11/09 23:55 Drug: morphine 2 mg Route: IVP; Site: left antecubital; sf 11/10 01:00 Follow up: Response: No adverse reaction; Pain is decreased sf Disposition: 11/09/20 23:55 Transfer ordered to [facility]. Diagnosis are Acute viral hepatitis, unspecified, Coronavirus infection, unspecified. - Reason for transfer: Higher level of care. - Accepting physician is DR Kerr. - Condition is Stable. - Problem is new. - Symptoms have improved. Signatures: Dispatcher [employer] EDMS Patrick Mullen MD MD kdr Negro Small PA PA cp Kendell Dove, RN RN rv Brandon Castle RN RN ll1 Sushant Lockhart RN RN Ashlyn Waite RN RN Corrections: (The following items were deleted from the chart) 11/09 14:49 13:36 Abdomen Limited+US.RAD.BRZ ordered. EDMS EDMS 20:46 19:55 CORONAVIRUS+MR.LAB.BRZ ordered. EDMS EDMS 23:54 17:16 Hospitalization Ordered by Nolan Parry MD for Observation. Preliminary cp diagnosis is Vomiting - Intractable; Nausea and vomiting; Hepatitis - unspecified. Bed requested for Telemetry/MedSurg (observation). Status is Observation. Condition is Fair. Problem is an ongoing problem. Symptoms have improved. kdr 11/10 02:43 11/09 23:55 11/09/2020 23:55 Transfer ordered to [facility]. sf Diagnosis is Acute viral hepatitis, unspecified; Coronavirus infection, unspecified. Reason for transfer: Higher level of care. Accepting physician is DR Kerr. Condition is Stable. Problem is new. Symptoms have improved. cp
--- NOTE | 2020-11-09 17:17 | ER ---
Nurse's Notes [facility] Name: Elizabeth Ocampo Age: 20 yrs Sex: Female : 2000 Arrival Date: 11/09/2020 Time: 11:18 Bed 17 Private MD: Diagnosis: Acute viral hepatitis, unspecified;Coronavirus infection, unspecified Presentation: 11/09 11:31 Chief complaint: Patient states: SOB and covid positive since 10/30. Started having ll1 N/V/D the past 4 days. No appetite with weight loss. No fever at home. + RUSSELL and body aches. Coronavirus screen: Client denies travel out of the [place] in the last 14 days. chills, congestion, diarrhea, difficulty breathing, fatigue, headache, muscle pain, nausea, runny nose, shaking with chills, shortness of breath, loss of taste or smell, vomiting. Client presents with at least one sign or symptom that may indicate coronavirus-19. Standard/surgical mask placed on the client. Client reports previous positive COVID test result. Date of collection: October 30, 2020. Ebola Screen: Patient denies travel to an Ebola-affected area in the 21 days before illness onset. Initial Sepsis Screen: Does the patient meet any 2 criteria? HR > 90 bpm. No. Patient's initial sepsis screen is negative. Does the patient have a suspected source of infection? Yes: Productive cough/pneumonia. Risk Assessment: Do you want to hurt yourself or someone else? Patient reports no desire to harm self or others. Onset of symptoms was October 30, 2020. 11:31 Method Of Arrival: Ambulatory ll1 11:31 Acuity: BRITTANY 3 ll1 Historical: - Allergies: 11:34 No Known Allergies; ll1 - Home Meds: 19:13 Vitamin C Oral daily [Active]; sf - PMHx: 11:34 None; ll1 - PSHx: 11:34 Cholecystectomy; ll1 - Immunization history:: Flu vaccine is not up to date. - Social history:: Smoking status: Patient denies any tobacco usage or history of. Screenin:45 Abuse screen: Denies threats or abuse. Nutritional screening: No deficits noted. bw Tuberculosis screening: No symptoms or risk factors identified. Fall Risk None identified. Assessment: 12:45 General: Appears in no apparent distress. uncomfortable, Behavior is calm, cooperative, bw appropriate for age. Pain: Complains of pain in back. Neuro: No deficits noted. Cardiovascular: No deficits noted. Respiratory: Reports shortness of breath cough that is Breath sounds are clear Breath sounds are diminished bilaterally. GI: Bowel sounds present X 4 quads. Abd is soft Abdomen is tender to palpation. : No deficits noted. 13:45 Reassessment: Patient appears in no apparent distress at this time. Patient and/or bw family updated on plan of care and expected duration. Pain level reassessed. Patient is alert, oriented x 3, equal unlabored respirations, skin warm/dry/pink. 14:45 Reassessment: pt to radiology. bw 15:45 Reassessment: Patient appears in no apparent distress at this time. Patient and/or bw family updated on plan of care and expected duration. Pain level reassessed. Patient is alert, oriented x 3, equal unlabored respirations, skin warm/dry/pink. 16:45 Reassessment: No changes from previously documented assessment. bw 17:45 Reassessment: pt c/o nausea and back pain again. MD aware. bw 18:30 Reassessment: Patient appears in no apparent distress at this time. Patient and/or bw family updated on plan of care and expected duration. Pain level reassessed. Patient is alert, oriented x 3, equal unlabored respirations, skin warm/dry/pink. 19:11 General: Appears in no apparent distress. comfortable, Behavior is calm, cooperative, sf appropriate for age, Reports feeling ill for 12-24 hours. Pain: Denies pain. Neuro: No deficits noted. Level of Consciousness is awake, alert, obeys commands, Oriented to person, place, time, situation. Cardiovascular: No deficits noted. Patient's skin is warm and dry. Respiratory: No deficits noted. Airway is patent Respiratory effort is even, unlabored, Respiratory pattern is regular, symmetrical. GI: Abdomen is non-distended, Reports diarrhea, nausea, now resolved Patient currently denies abdominal pain. : No signs and/or symptoms were reported regarding the genitourinary system. EENT: No signs and/or symptoms were reported regarding the EENT system. Derm: No signs and/or symptoms reported regarding the dermatologic system. Musculoskeletal: No signs and/or symptoms reported regarding the musculoskeletal system. 21:19 Reassessment: Patient appears in no apparent distress at this time. No changes from sf previously documented assessment. Patient and/or family updated on plan of care and expected duration. Pain level reassessed. Patient is alert, oriented x 3, equal unlabored respirations, skin warm/dry/pink. 23:57 Reassessment: Patient and/or family updated on plan of care and expected duration. Pain sf level reassessed. Patient is alert, oriented x 3, equal unlabored respirations, skin warm/dry/pink. Reports increase in nausea and pain to head and back. 11/10 01:06 Reassessment: Patient appears in no apparent distress at this time. Patient and/or sf family updated on plan of care and expected duration. Pain level reassessed. Patient is alert, oriented x 3, equal unlabored respirations, skin warm/dry/pink. Patient states feeling better. Patient states symptoms have improved. 02:25 Reassessment: Patient appears in no apparent distress at this time. No changes from sf previously documented assessment. Patient and/or family updated on plan of care and expected duration. Pain level reassessed. Patient is alert, oriented x 3, equal unlabored respirations, skin warm/dry/pink. Vital Signs: 11/09 11:31 BP 110 / 53; Pulse 108; Resp 17; Temp 98.3; Pulse Ox 97% on R/A; Weight 81.65 kg; ll1 Height 4 ft. 11 in. (149.86 cm); Pain 9/10; 12:45 BP 105 / 70; Pulse 95; Resp 18; Pulse Ox 95% on R/A; bw 14:45 BP 112 / 64; Pulse 98; Resp 18; Pulse Ox 96% on R/A; bw 16:45 BP 104 / 78; Pulse 96; Resp 18; Pulse Ox 96% on R/A; bw 18:35 BP 110 / 74; Pulse 97; Resp 18; Pulse Ox 96% on R/A; bw 19:04 BP 107 / 69; Pulse 70; Resp 16; Pulse Ox 97% ; sf 21:14 BP 106 / 79 RA Sitting (auto/reg); Pulse 66 MON; Resp 16 S; Temp 98.4(O); Pulse Ox 99% sf on R/A; Pain 0/10; 23:47 BP 113 / 77; Pulse 68; Resp 16; Pulse Ox 98% ; Pain 7/10; sf 11/10 02:41 BP 97 / 71; Pulse 72; Resp 16; Temp 98.7; Pulse Ox 98% ; Pain 0/10; sf 11/09 11:31 Body Mass Index 36.36 (81.65 kg, 149.86 cm) ll1 ED Course: 11/09 11:18 Patient arrived in ED. mr 11:25 Patrick Mullen MD is Attending Physician. kdr 11:31 Arm band placed on. ll1 11:33 Triage completed. ll1 12:35 Ashlyn Waite, RN is Primary Nurse. bw 12:45 Patient has correct armband on for positive identification. Call light in reach. Side bw rails up X 1. teletypesetter monitor on. Pulse ox on. NIBP on. Warm blanket given. 12:45 No provider procedures requiring assistance completed. Inserted saline lock: 20 gauge bw in left antecubital area, using aseptic technique. Blood collected. 13:55 CT Abd/Pelvis - IV Contrast Only In Process Unspecified. EDMS 15:20 Hepatitis Panel Sent. jp3 17:15 Nolan Parry MD is Hospitalizing Provider. kdr 19:04 Diet: Patient given ice chips. Patient given water. sf 19:05 Primary Nurse role handed off by Ashlyn Waite, KETAN sf 19:05 Sushant Lockhart, KETAN is Primary Nurse. sf 22:51 initiated a transfer with Lorena Collado from [facility]. mw2 23:34 doc to doc with the GI specialist from [facility]. [facility] 23:46 administrative approval given by Lorena Collado/ patient has been accepted to [address] [place] bed 748/Dr. Meneses has accepted the patient in transfer/ report to be called to [phone]. 23:58 transfer transportation to receiving facility. sf 11/10 02:41 Patient transferred, IV remains in place. sf 02:42 Report given to [facility]. sf Administered Medications: 11/09 12:57 Drug: Zofran (Ondansetron) 4 mg Route: IVP; Site: left antecubital; bw 13:54 Follow up: Response: No adverse reaction bw 12:57 Drug: TORadol - Ketorolac 15 mg Route: IVP; Site: right antecubital; bw 13:54 Follow up: Response: No adverse reaction bw 12:57 Drug: NS 0.9% 1000 ml Route: IV; Rate: 1 bolus; Site: left antecubital; bw 19:16 Follow up: IV Status: Completed infusion; IV Intake: 1000ml sf 12:57 Drug: morphine 4 mg Route: IVP; Site: left antecubital; bw 13:54 Follow up: Response: No adverse reaction bw 12:58 Drug: Pepcid (famotidine) 20 mg Route: IVP; Site: left antecubital; bw 13:54 Follow up: Response: No adverse reaction bw 17:11 Drug: Zofran (Ondansetron) 4 mg Route: IVP; Site: left antecubital; bw 19:15 Follow up: Response: No adverse reaction; Nausea is decreased sf 17:12 Drug: [place] (HYDROcodone-acetaminophen) 10 mg-325 mg 1 tabs Route: PO; bw 19:16 Follow up: Response: No adverse reaction; Pain is decreased sf 23:55 Drug: Zofran (Ondansetron) 4 mg Route: IVP; Site: left antecubital; sf 11/10 01:00 Follow up: Response: No adverse reaction; Nausea is decreased sf 11/09 23:55 Drug: morphine 2 mg Route: IVP; Site: left antecubital; sf 11/10 01:00 Follow up: Response: No adverse reaction; Pain is decreased sf Intake: 11/09 19:16 IV: 1000ml; Total: 1000ml. sf Outcome: 17:16 Decision to Hospitalize by Provider. kdr 23:55 ER care complete, transfer ordered by . cp 11/10 00:15 Transferred by ground EMS Note: report called to Jud ACEVES, awaiting a transport crew sg at this time 02:41 Condition: stable sf 02:43 Patient left the ED. sf Signatures: Dispatcher [employer] EDMS Sushant Farias, KETAN RN Patrick Ndiaye MD MD kdr Rivera, Mary mr Negro Small PA PA cp Bar Mccain mw2 Tho Argueta jp3 Brandon Castle RN RN 1 Sushant Lockhart RN RN sf Waite, Ashlyn, RN RN bw
[2020-11-09] MEDS ORDERED: HYDROCODONE/APAP 10/325 TAB ONE (17:25)
[2020-11-09 23:58] LABS: Barbiturates NEGATIVE (NEGATIVE); Benzodiazepines NEGATIVE (NEGATIVE); Cocaine NEGATIVE (NEGATIVE); METHAMPHETAM NEGATIVE (NEGATIVE); Methadone NEGATIVE (NEGATIVE); Opiates POSITIVE (NEGATIVE); Phencyclidine NEGATIVE (NEGATIVE); THC Cannibis POSITIVE (NEGATIVE)
[2020-11-10] MEDS ORDERED: ONDANSETRON 4 MG/2 ML VIAL ONE (00:09)
[2020-11-10] MEDS ORDERED: MORPHINE 2 MG/ML SYR ONE (00:09)
[2020-11-10 19:43] VITALS: O2SAT 98
[2020-11-10 19:44] VITALS: BP 97/71; TEMP 98.7
[2020-11-12 12:56] LABS: HBsAG Nonreactive (Nonreactive)
== END 2020-11-10 02:43 | disposition short-term general hospital (02) ==
LOC: ER 11:13
DX: U07.1 COVID-19 (principal); B17.9 Acute viral hepatitis, unspecified
CPT/HCPCS: 36415; 74177; 80048; 80074; 80076; 80307; 83690; 85025; 99285; J2405; J7030; Q9967; U0003